=== PATIENT | male | born 1975 | race Caucasian/White ===

== ENCOUNTER 2017-04-05 06:45 | Emergency (ER) | payer SELFPAY ==
[2017-04-05 07:34] VITALS: BP 130/88
== END 2017-04-05 07:34 | disposition home or self-care (01) ==
LOC: ED 06:45
DX: M79.1 Myalgia (principal); E66.01 Morbid (severe) obesity due to excess calories
CPT/HCPCS: 82962

== ENCOUNTER 2017-04-29 00:16 | Emergency (ER) | payer MEDICAID ==
[2017-04-29 01:17] LABS: microscopic required? NO
[2017-04-29 01:46] LABS: urine erythrocyte NEGATIVE (NEGATIVE)
[2017-04-29 02:59] VITALS: BP 129/80
== END 2017-04-29 02:59 | disposition home or self-care (01) ==
LOC: ED 00:16
PROVIDERS: Emergency Medicine
DX: N50.811 Right testicular pain (principal)
CPT/HCPCS: Q0092

== ENCOUNTER 2017-06-17 00:25 | Emergency (ER) | payer SELFPAY | END 2017-06-17 00:57 | disposition left against medical advice (07) | LOC: ED 00:25 | DX: Z53.21 Procedure and treatment not carried out due to patient leaving prior to being seen by health care provider (principal) ==

== ENCOUNTER 2018-05-03 08:03 | Emergency (ER) | payer SELFPAY ==
[~2018-05-03] VITALS: Ht 172.7 cm; Wt 111.1 kg
[2018-05-03 08:12] VITALS: Ht 172.7 cm; Wt 111.1 kg
[2018-05-03 09:27] LABS: microscopic required? NO
[2018-05-03 10:30] VITALS: BP 121/88
[2018-05-03 10:43] LABS: UA SPECIFIC GRAVITY >=1.030 (1.005-1.035); urine erythrocyte NEGATIVE (NEGATIVE)
== END 2018-05-03 10:30 | disposition home or self-care (01) ==
LOC: ED 08:03
PROVIDERS: Emergency Medicine
DX: R31.9 Hematuria, unspecified (principal)
CPT/HCPCS: 87491; 87591; J1885

== ENCOUNTER 2018-12-17 11:42 | Emergency (ER) | payer OTHER, MEDICAID ==
[~2018-12-17] VITALS: Ht 170.2 cm; Wt 108.9 kg
[2018-12-17 15:32] VITALS: BP 112/71
== END 2018-12-17 15:32 | disposition home or self-care (01) ==
LOC: ED 11:42
DX: S90.31XA Contusion of right foot, initial encounter (principal); B34.9 Viral infection, unspecified; Z98.890 Other specified postprocedural states; W20.8XXA Other cause of strike by thrown, projected or falling object, initial encounter; Y93.89 Activity, other specified; Y92.89 Other specified places as the place of occurrence of the external cause; Y99.0 Civilian activity done for income or pay
CPT/HCPCS: J1885

== ENCOUNTER 2018-12-24 11:33 | Emergency (ER) | payer OTHER, MEDICAID ==
[~2018-12-24] VITALS: Ht 175.3 cm; Wt 108.9 kg
[2018-12-24 11:39] VITALS: Ht 175.3 cm; Wt 108.9 kg
[2018-12-24 13:16] VITALS: BP 129/86
== END 2018-12-24 13:16 | disposition home or self-care (01) ==
LOC: ED 11:33
DX: S90.31XA Contusion of right foot, initial encounter (principal); Z98.890 Other specified postprocedural states; W22.8XXA Striking against or struck by other objects, initial encounter; Y93.89 Activity, other specified; Y92.89 Other specified places as the place of occurrence of the external cause; Y99.8 Other external cause status

== ENCOUNTER 2019-06-14 06:35 | Emergency (ER) | payer OTHER ==
[~2019-06-14] VITALS: Ht 175.3 cm; Wt 118.4 kg
[2019-06-14 06:38] VITALS: Ht 175.3 cm; Wt 118.4 kg
[2019-06-14 07:43] LABS: BASOPHIL % 0.3 % (0-2); PLATELET COUNT 240 x10^3mcL (130-400)
[2019-06-14 07:51] LABS: CALCIUM 8.3 mg/dL (8.5-10.1); CARBON DIOXIDE 28.7 mmol/L (21-32); CHLORIDE SERUM 109 mmol/L (98-107); CREATININE SERUM 1.1 mg/dL (0.7-1.3); GFR1 > 60 mL/min; GLUCOSE SERUM 134 mg/dL (74-106); POTASSIUM SERUM 3.9 mmol/L (3.5-5.1); SODIUM SERUM 143 mmol/L (136-145)
[2019-06-14 07:56] LABS: ALBUMIN 3.5 g/dL (3.4-5.0); ALKALINE PHOSPHATASE 89 U/L (46-116); ALT/SGPT 58 U/L (16-63); AST/SGOT 18 U/L (15-37); BILIRUBIN TOTAL 0.35 mg/dL (0.20-1.00); TOTAL PROTEIN, SERUM 6.9 g/dL (6.4-8.2)
[2019-06-14 08:04] LABS: RED CELL DISTRIBUTION WIDTH 15.1 % (11.5-14.5)
[2019-06-14 09:42] VITALS: BP 106/59
== END 2019-06-14 09:42 | disposition home or self-care (01) ==
LOC: ED 06:35
PROVIDERS: Emergency Medicine
DX: R07.89 Other chest pain (principal); R51 Headache; R42 Dizziness and giddiness
CPT/HCPCS: 36415

== ENCOUNTER 2019-07-14 17:07 | Emergency (ER) | payer OTHER ==
[~2019-07-14] VITALS: Ht 175.3 cm; Wt 114.8 kg
[2019-07-14 17:10] VITALS: Ht 175.3 cm; Wt 114.8 kg
[2019-07-14 17:38] VITALS: BP 123/83
== END 2019-07-14 17:38 | disposition home or self-care (01) ==
LOC: ED 17:07
DX: H92.01 Otalgia, right ear (principal); H50.9 Unspecified strabismus; E78.00 Pure hypercholesterolemia, unspecified

== ENCOUNTER 2019-07-16 14:43 | Emergency (ER) | payer OTHER ==
[~2019-07-16] VITALS: Ht 175.3 cm; Wt 114.3 kg
[2019-07-16 14:48] VITALS: Ht 175.3 cm; Wt 114.3 kg
[2019-07-16 15:18] LABS: microscopic required? NO
[2019-07-16 15:27] LABS: UA SPECIFIC GRAVITY >=1.030 (1.005-1.035); urine erythrocyte NEGATIVE (NEGATIVE)
[2019-07-16 15:51] LABS: AMPHETAMINE QUAL UR NONE DETECTED (See below)
[2019-07-16 16:27] VITALS: BP 115/75
== END 2019-07-16 16:27 | disposition home or self-care (01) ==
LOC: ED 14:43
PROVIDERS: Emergency Medicine
DX: R10.30 Lower abdominal pain, unspecified (principal); R19.7 Diarrhea, unspecified; E78.00 Pure hypercholesterolemia, unspecified; Z98.890 Other specified postprocedural states
CPT/HCPCS: J1885

== ENCOUNTER 2019-12-05 08:29 | Emergency (ER) | payer OTHER ==
[~2019-12-05] VITALS: Ht 175.3 cm; Wt 117.0 kg
[2019-12-05 08:46] VITALS: BP 120/91; Ht 175.3 cm; Wt 117.0 kg
[2019-12-05 09:24] LABS: microscopic required? NO
[2019-12-05 09:28] LABS: BASOPHIL % 0.3 % (0-2); PLATELET COUNT 255 x10^3mcL (130-400); RED CELL DISTRIBUTION WIDTH 14.3 % (11.5-14.5)
[2019-12-05 09:32] LABS: CALCIUM 8.6 mg/dL (8.5-10.1); CARBON DIOXIDE 29.4 mmol/L (21-32); CHLORIDE SERUM 108 mmol/L (98-107); GFR1 > 60 mL/min; GLUCOSE SERUM 114 mg/dL (74-106); SODIUM SERUM 143 mmol/L (136-145)
[2019-12-05 09:37] LABS: ALBUMIN 3.7 g/dL (3.4-5.0); ALKALINE PHOSPHATASE 83 U/L (46-116); ALT/SGPT 71 U/L (16-63); AST/SGOT 29 U/L (15-37); BILIRUBIN TOTAL 0.72 mg/dL (0.20-1.00); HDL CHOLESTEROL 36 mg/dL (40-60); LIPASE 116 IU/L (73-393); TOTAL PROTEIN, SERUM 7.3 g/dL (6.4-8.2); TRIGLYCERIDES 126 mg/dL (<150)
[2019-12-05 09:42] LABS: CHOLESTEROL 212 mg/dL (<200); CHOLESTEROL/HDL RATIO 5.9
[2019-12-05 09:44] LABS: UA SPECIFIC GRAVITY >=1.030 (1.005-1.035); urine erythrocyte NEGATIVE (NEGATIVE)
== END 2019-12-05 11:21 | disposition home or self-care (01) ==
LOC: ED 08:29
PROVIDERS: Specialist
DX: K80.20 Calculus of gallbladder without cholecystitis without obstruction (principal); G89.29 Other chronic pain; M54.5 Low back pain; E66.01 Morbid (severe) obesity due to excess calories; E78.00 Pure hypercholesterolemia, unspecified
CPT/HCPCS: 36415; J1885; Q0092

== ENCOUNTER 2020-01-11 21:26 | Emergency (ER) | payer OTHER ==
[~2020-01-11] VITALS: Ht 175.3 cm; Wt 115.2 kg
[2020-01-11 21:29] VITALS: Ht 175.3 cm; Wt 115.2 kg
[2020-01-11 21:55] LABS: BASOPHIL % 0.3 % (0-2); PLATELET COUNT 274 x10^3mcL (130-400); RED CELL DISTRIBUTION WIDTH 14.3 % (11.5-14.5)
[2020-01-11 22:05] LABS: CALCIUM 9.2 mg/dL (8.5-10.1); CARBON DIOXIDE 30.7 mmol/L (21-32); CHLORIDE SERUM 105 mmol/L (98-107); GFR1 > 60 mL/min; GLUCOSE SERUM 108 mg/dL (74-106); POTASSIUM SERUM 4.2 mmol/L (3.5-5.1); SODIUM SERUM 144 mmol/L (136-145)
[2020-01-11 22:10] LABS: ALBUMIN 4.2 g/dL (3.4-5.0); ALKALINE PHOSPHATASE 91 U/L (46-116); ALT/SGPT 57 U/L (16-63); AST/SGOT 24 U/L (15-37); BILIRUBIN TOTAL 0.8 mg/dL (0.20-1.00); LIPASE 131 IU/L (73-393); TOTAL PROTEIN, SERUM 8.1 g/dL (6.4-8.2)
[2020-01-11 23:31] LABS: microscopic required? NO
[2020-01-11 23:46] LABS: UA SPECIFIC GRAVITY >=1.030 (1.005-1.035); urine erythrocyte NEGATIVE (NEGATIVE)
[2020-01-12 02:15] VITALS: BP 108/69
== END 2020-01-12 02:12 | disposition home or self-care (01) ==
LOC: ED 21:26
PROVIDERS: Emergency Medicine
DX: E78.00 Pure hypercholesterolemia, unspecified (principal); E66.9 Obesity, unspecified; Z68.37 Body mass index [BMI] 37.0-37.9, adult; Z98.890 Other specified postprocedural states
CPT/HCPCS: J1885; J2405; J3010; J7030; Q0092

== ENCOUNTER 2020-02-14 08:30 | Emergency (ER) | payer OTHER ==
[~2020-02-14] VITALS: Ht 175.3 cm; Wt 115.7 kg
[2020-02-14 08:36] VITALS: BP 135/89; Ht 175.3 cm; Wt 115.7 kg
[2020-02-14 10:18] LABS: microscopic required? NO
[2020-02-14 11:16] LABS: UA SPECIFIC GRAVITY 1.025 (1.005-1.035); urine erythrocyte NEGATIVE (NEGATIVE)
== END 2020-02-14 10:15 | disposition home or self-care (01) ==
LOC: ED 08:30
PROVIDERS: Emergency Medicine
DX: R30.0 Dysuria (principal); N48.89 Other specified disorders of penis; E78.00 Pure hypercholesterolemia, unspecified
CPT/HCPCS: 87491; 87591

== ENCOUNTER 2020-10-13 22:23 | Emergency (ER) | payer SELFPAY | END 2020-10-13 22:53 | disposition left against medical advice (07) | LOC: ED 22:23 | DX: Z53.21 Procedure and treatment not carried out due to patient leaving prior to being seen by health care provider (principal) ==